=== PATIENT | male | born 1995 | race Caucasian/White ===

== ENCOUNTER 2016-12-13 05:18 | Day surgery (SDC) | payer OTHER ==
[~2016-12-13] VITALS: Ht 185.4 cm; Wt 85.1 kg
[2016-12-13] MEDS ORDERED: ADDERALL20 MG PO (06:19)
[2016-12-13] MEDS ORDERED: DESYREL 100MG100 MG PO (06:19)
[2016-12-13] MEDS ORDERED: ZOLOFT 100MG100 MG PO (06:20)
[2016-12-13] MEDS ORDERED: ZYRTEC 10MG10 MG PO (06:20)
[2016-12-13 08:50] VITALS: BP 113/70; PULSE 83; TEMP 98.2
[2016-12-13 09:05] VITALS: BP 117/68; PULSE 69
[2016-12-13 09:20] VITALS: BP 115/85; PULSE 80
[2016-12-13 09:35] VITALS: BP 108/63; PULSE 70
[2016-12-13 11:09] VITALS: BP 126/70; PULSE 76; TEMP 98
== END 2016-12-13 10:10 | disposition home or self-care (01) ==
LOC: SDCO 05:18
DX: Q53.10 Unspecified undescended testicle, unilateral (principal); F32.9 Major depressive disorder, single episode, unspecified; F90.1 Attention-deficit hyperactivity disorder, predominantly hyperactive type; F41.9 Anxiety disorder, unspecified; Z83.3 Family history of diabetes mellitus; Z82.49 Family history of ischemic heart disease and other diseases of the circulatory system; Z80.0 Family history of malignant neoplasm of digestive organs
CPT/HCPCS: A4315; J0690; J1100; J1885; J2250; J2405; J2704; J2710; J3010; J7120

== ENCOUNTER 2017-01-07 20:48 | Emergency (ER) | payer OTHER ==
[~2017-01-07] VITALS: Ht 185.4 cm; Wt 81.8 kg
[~2017-01-07 20:48] MED LIST: ADDERALL20 MG PO; DESYREL 100MG100 MG PO; ZOLOFT 100MG100 MG PO; ZYRTEC 10MG10 MG PO
[2017-01-07 20:53] VITALS: BP 134/93; TEMP 98.2
[2017-01-07] MEDS ORDERED: DESYREL 50MG50 MG PO (20:57)
[2017-01-07 21:33] LABS: PH 6 (5-8); SQUAMOUS EPITHELIAL None Seen /hpf; URINE APPEARANCE Clear; URINE BACTERIA None Seen /hpf; URINE BILIRUBIN Negative (NEGATIVE); URINE BLOOD Negative (NEGATIVE); URINE COLOR Yellow; URINE GLUCOSE Negative (NEGATIVE); URINE KETONE Negative (NEGATIVE); URINE RBC 0-2 /hpf; URINE UROBILINOGEN Negative (NEGATIVE); URINE WBC 0-2 /hpf
[2017-01-07] MEDS ORDERED: NORCO 325 MG-51 TAB PO (22:42)
[2017-01-07] MEDS ORDERED: DOXYCYCLINE 10100 MG PO (22:42)
[2017-01-07 22:55] VITALS: PULSE 86
[2017-01-08 00:08] LABS: CHLAMYDIA/TRACH by PCR Male NOT DETECTED; Neisseria Gon by PCR Male NOT DETECTED
== END 2017-01-07 23:02 | disposition home or self-care (01) ==
LOC: COL.ER 20:48
PROVIDERS: Emergency Medicine
DX: N50.811 Right testicular pain (principal); Q55.0 Absence and aplasia of testis

== ENCOUNTER 2017-01-14 21:43 | Emergency (ER) | payer OTHER ==
[~2017-01-14] VITALS: Ht 185.4 cm; Wt 81.8 kg
[~2017-01-14 21:43] MED LIST changes: +DESYREL 50MG50 MG PO; +DOXYCYCLINE 10100 MG PO; +NORCO 325 MG-51 TAB PO
[2017-01-14 21:45] VITALS: TEMP 97.5
[2017-01-14 22:52] LABS: BASO # 0.1 (0.0-0.2); BASO % 0.9 % (0.0-2.0); EOS # 0.2 (0.0-0.7); EOS % 2.8 % (0-4.0); GRAN # 2.4 (1.4-6.5); GRAN % 41.2 % (42.2-75.2); HEMATOCRIT 44.1 % (42.0-52.0); HEMOGLOBIN 14.9 g/dl (13.5-18.0); LYMPH # 2.5 (1.2-3.4); LYMPH % 42.5 % (20.0-51.0); MEAN CELL VOLUME 85 fl (80.0-100.0); MEAN CORPUSCULAR HEMOGLOBIN 29 pg (27.0-31.0); MEAN CORPUSCULAR HGB CONC 34 g/dl (33.0-37.0); MONO # 0.7 (0.1-0.6); MONO % 11.9 % (1.7-9.3); PLATELET COUNT 248 K/mm3 (130-400); RED BLOOD COUNT 5.22 M/mm3 (4.20-5.60); REDCELL DISTRIBUTION WIDTH-CV 13.4 % (11.5-14.5); WHITE BLOOD COUNT 5.8 K/mm3 (4.8-10.8)
[2017-01-14 23:04] LABS: ADJUSTED CALCIUM 8.8 mg/dL (8.4-10.2); ALBUMIN 4.5 gm/dL (3.5-5.0); BILIRUBIN,TOTAL 1.1 mg/dL (0.0-1.0); CALCIUM 9.2 mg/dL (8.4-10.2); CREATININE, serum 0.81 mg/dL (0.66-1.25); TOTAL PROTEIN 7.3 gm/dL (6.4-8.2)
[2017-01-14 23:28] VITALS: BP 135/88; PULSE 88
== END 2017-01-14 23:33 | disposition home or self-care (01) ==
LOC: COL.ER 21:43
PROVIDERS: Emergency Medicine
DX: A08.4 Viral intestinal infection, unspecified (principal); Z87.438 Personal history of other diseases of male genital organs; Z98.890 Other specified postprocedural states
CPT/HCPCS: J7120

== ENCOUNTER 2017-09-30 14:31 | Emergency (ER) | payer OTHER ==
[~2017-09-30] VITALS: Ht 185.4 cm; Wt 100.0 kg
[2017-09-30 14:36] VITALS: PULSE 88; TEMP 97.7
[2017-09-30] MEDS ORDERED: LEXAPRO20 MG PO (15:01)
[2017-09-30] MEDS ORDERED: MOBIC15 MG PO (15:01)
[2017-09-30] MEDS ORDERED: ANTABUSE 250MG250 MG PO (15:01)
[2017-09-30 15:17] VITALS: BP 133/79
== END 2017-09-30 15:17 | disposition home or self-care (01) ==
LOC: COL.ER 14:31
DX: S93.402A Sprain of unspecified ligament of left ankle, initial encounter (principal); X50.0XXA Overexertion from strenuous movement or load, initial encounter; Y92.22 Religious institution as the place of occurrence of the external cause